=== PATIENT | female | born 1955 | race African-American/Black ===

== ENCOUNTER 2018-08-22 06:10 | Emergency (ER) | payer OTHER ==
[~2018-08-22] VITALS: Ht 165.1 cm; Wt 89.8 kg
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
--- NOTE | 2018-08-22 06:38 | NUR ---
[address] at bedside to interview pt
[2018-08-22] MEDS ORDERED: ACETAMINOPHEN ES 500 MG TABLET ONE (06:53)
[2018-08-22] MEDS ORDERED: ACETAMINOPHEN ES 500 MG TABLET PO ONE (07:00)
--- NOTE | 2018-08-22 07:08 | NUR ---
Pt went down to radiology dept for xray. report given to day shift nurse.
--- NOTE | 2018-08-22 08:07 | NUR ---
Patient discharged to home in stable conditon. Written and verbal after care instructions given. Patient verbalizes understanding of instructions.
== END 2018-08-22 08:07 | disposition home or self-care (01) ==
LOC: ER 06:11
DX: S33.5XXA Sprain of ligaments of lumbar spine, initial encounter (principal); S40.012A Contusion of left shoulder, initial encounter; Z88.0 Allergy status to penicillin; V89.2XXA Person injured in unspecified motor-vehicle accident, traffic, initial encounter; Y93.89 Activity, other specified; Y92.89 Other specified places as the place of occurrence of the external cause; Y99.8 Other external cause status
CPT/HCPCS: 72110; 73030; A4663; A9150